=== PATIENT | female | born 1990 | race African-American/Black ===

== ENCOUNTER 2016-03-29 12:35 | Emergency (ER) | payer OTHER, MEDICAID ==
[2016-03-29 12:52] VITALS: TEMP 98.7; BMI 28.5
--- NOTE | 2016-03-29 16:26 | EDPRACDOC ---
- General Information Chief Complaint: Chest Wall Pain Stated Complaint: CP SHARP Time Seen by Provider: 03/29/16 16:19 Information Source: Patient Mode of Arrival: Ambulance Home Medications: Home Medications Norgestimate-Ethinyl Estradiol [Trinessa Tablet] 1 tab PO DAILY 03/29/16 Allergies/Adverse Reactions: Allergies Allergy/AdvReac Type Severity Reaction Status Date / Time No Known Drug Allergies Allergy Unknown Verified 03/29/16 12:52 - History of Present Illness Onset: THIS AM HPI: SUBSTERNAL CHEST PAIN STARTED TODAY AT WORK DURING LUNCH TIME. PT WAS MAKING SANDWICHES. SOME SOB. PT DENIES . ON CONTROL. ED Past Medical History - History Reviewed Yes Nurses notes reviewed and agree except as marked - Patient Medical History Neurological History: Denies: Cerebrovascular Accident, Seizures, Multiple Sclerosis Cardiac History: Denies: Syncope Psychological History: Denies: Depression Systemic History: Denies: Cancer, Anemia, Lupus Surgical History: Reports: Other (BRAIN SURGERY A CHILD). Denies: Tonsillectomy/Adnoidectomy - Family Medical History Reports: Hypertension. Denies: Diabetes, Cancer, Stroke, Cardiac Disorders - Social Medical History Smoking Status: Former smoker EDM Review of Systems - Review of Systems ROS Negative Except as Marked: Yes All systems reviewed and were negative except as marked - Physical Exam Constitutional: Alert (Awake), No apparent distress Oriented to: Time, Person, Place Last recorded Vital Signs: Last Vital Signs Temp 98.7 F 03/29/16 12:45 Pulse 101 03/29/16 12:45 Resp 18 03/29/16 12:45 BP 116/67 03/29/16 12:45 Pulse Ox 100 03/29/16 12:45 Oxygen Pulse Oxygen Saturation 100 O2 Device Oxygen Flow Rate Fraction of Inspired Oxygen ( FIO2) - HEENT Head: Normal ( normocephalic) Eye Exam: Normal (PERRL, EOMI, Sclera white) Oropharynx: Normal (Pharynx:Moist without exudate,Gums-no swelling) Nose: No Symptoms Reported (septum midline) Neck: Normal (FROM, trachea at midline) - Respiratory/Cardiovascular Respiratory: Normal - CTA (BBS clear to auscultation without adventitious sounds ) Cardiovascular: Normal (RRR without murmur, gallop or rub) - GI Auscultation: Normal (NABS) Palpation: Normal (Soft,No rebound or guarding, non distended) Tenderness: Non tender Moreno's Sign: Negative - Musculoskeletal Back: Normal (Non-Tender) Extremities: Normal (Normal tone, Pulses 2+ No cyanosis or edema, FROM) - Integumentary Skin: Normal, Warm, Dry Lymphatics: Normal (no adenopathy) - Neurologic Memory Impaired: Normal Motor Function: Normal (Normal tone, Pulses 2+ No cyanosis or edema, FROM) Cranial Nerve: Normal (CN II-X11 intact sensation, strength 5/5) Cerebellar: Normal Mood Description: Normal Perception: Normal ED Chest Pain Exam - Respiratory/Cardiovascular Chest Palpation: Tender, Reproduces Pain (STERNAL PALPATION) - Action ASA given in the ED: No Aspirin therapy held due to: Other-specify below* (NOT FELT TO BE CARDIAC) - EKG EKG #1 EKG Time: 12:51 -: Yes EKG interpreted by me Rate: bpm: 90 [place]: Normal Rhythm: NSR Block: None Hypertrophy: None ST: Normal Comments: NORMAL EKG Decision Time to Discharge: 16:57 - Departure Yes I personally saw and evaluated the patient. Disposition: Home Condition: Stable Final Diagnosis: Costochondritis, acute Instructions: Chest Wall Pain Education/Counseling Given To: Patient Education/Counseling Given Regarding: Diagnosis Referrals: None,No Provider [Primary Care Provider] - One Week Additional Instructions: IBUPROFEN 600 MG EVERY 8 HOURS FOR 1 WEEK.
--- NOTE | 2016-03-29 16:50 | DIRPT ---
CLINICAL DATA: Substernal chest pain with difficulty breathing EXAM: CHEST 2 VIEW COMPARISON: July 10, 2015 FINDINGS: Lungs are clear. Heart size and pulmonary vascularity are normal. No adenopathy. A shunt extends along anterior right hemithorax. No pneumothorax. No bone lesions. IMPRESSION: No edema or consolidation. Electronically Signed By: Wilton Bella III, M.D. On: 03/29/2016 16:48
[2016-03-29 17:04] VITALS: BP 119/73; PULSE 75
== END 2016-03-29 17:05 | disposition home or self-care (01) ==
LOC: ED 12:35
DX: M94.0 Chondrocostal junction syndrome [Tietze] (principal)
CPT/HCPCS: 71020; 93005; 99283